=== PATIENT | male | born 1985 | race Hispanic/Latino ===

== ENCOUNTER → 2017-01-26 | Outpatient (CLI) | payer OTHER ==
--- NOTE | 2017-01-26 16:32 | REP ---
CT RIGHT KNEE: Axial CT imaging was performed of the right knee with sagittal and coronal reconstruction images. There is evidence of prior ACL repair. A metallic pin is seen in the distal femur. This enters posteriorly and laterally. There is mild spurring of the femoral condyles. There is mild lateral patellofemoral compartment narrowing. There is a tibial tunnel present. At the superior margin of the tibial tunnel is a small rounded ossific density projecting off of the lateral tibial spine. A dominant oval ossific fragment at the posteromedial margin of the proximal tibia may represent an old fracture fragment, measuring approximately 2.2 cm in length and about 6 mm in thickness. Several smaller ossific densities are seen just medial to this. There are adjacent benign appearing subcortical cystic areas in the posteromedial aspect of the proximal tibia with 2 identified. There is a thin sclerotic margin. The largest measures 1.3 cm in diameter. No significant soft tissue abnormality is seen. IMPRESSION: Evidence of prior anterior cruciate ligament repair as discussed in detail above with secondary arthritic changes. Ossific structures along the posteromedial aspect of the proximal tibia may represent old fracture fragments. Signed by Sai Fowler MD 01/26/2017 08:37 P
== END ==
LOC: M RAD 15:26
PROVIDERS: ATTEND Orthopaedic Surgery
DX: S83.511D Sprain of anterior cruciate ligament of right knee, subsequent encounter (principal); X58.XXXD Exposure to other specified factors, subsequent encounter; Y93.9 Activity, unspecified; Y92.9 Unspecified place or not applicable; Y99.8 Other external cause status

== ENCOUNTER 2018-01-19 21:25 | Emergency (ER) | payer OTHER | END 2018-01-19 23:18 | disposition left against medical advice (07) | LOC: M ED 21:25 | DX: M54.9 Dorsalgia, unspecified (principal); Z53.21 Procedure and treatment not carried out due to patient leaving prior to being seen by health care provider | CPT/HCPCS: 99281 ==